=== PATIENT | female | born 2000 | race Caucasian/White ===

== ENCOUNTER 2020-06-01 07:53 | Emergency (ER) | payer BC ==
--- NOTE | 2020-06-01 08:44 | RAD REPORT ---
EXAM DESCRIPTION: RAD - Chest Single View - 06/01/2020 8:24 am CLINICAL HISTORY: COUGH Chest pain. COMPARISON: No comparisons FINDINGS: Portable technique limits examination quality. The lungs are grossly clear. The heart is normal in size. No displaced fractures. IMPRESSION: No acute intrathoracic process suspected.
--- NOTE | 2020-06-01 08:57 | ER ---
Nurse's Notes [facility] Name: Carolyn Snyder Age: 19 yrs Sex: Female : 2000 Arrival Date: 06/01/2020 Time: 07:57 Bed 8 Private MD: Diagnosis: Acute upper respiratory infection, [id number] (confirmed per pt) Presentation: 06/01 08:03 Chief complaint: Patient states: tested positive for COVID on 05-29, has had a cough iw since then, had fever one day but has now resolved, pt noticed some bright red blood in her sputum this morning. Coronavirus screen: Patient reports a cough. Patient reports shortness of breath or difficulty breathing. Patient reports a measured and/or subjective temperature greater than 100.4F. Patient denies travel on a cruise ship or to a country the [facility] currently lists as an affected area. Patient reports contact with known and/or suspected case of COVID-19. Coronavirus screen: Prior COVID test collected on: 05/29/20. Ebola Screen: Patient negative for fever greater than or equal to 101.5 degrees Fahrenheit, and additional compatible Ebola Virus Disease symptoms Patient denies exposure to infectious person. Patient denies travel to an Ebola-affected area in the 21 days before illness onset. No symptoms or risks identified at this time. Initial Sepsis Screen: Does the patient meet any 2 criteria? No. Patient's initial sepsis screen is negative. Does the patient have a suspected source of infection? No. Patient's initial sepsis screen is negative. Risk Assessment: Do you want to hurt yourself or someone else? Patient reports no desire to harm self or others. Onset of symptoms was May 29, 2020. 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 - Social history:: Smoking status: Patient denies any tobacco usage or history of. Screenin:58 Abuse screen: Denies threats or abuse. Denies injuries from another. Nutritional iw screening: No deficits noted. Tuberculosis screening: No symptoms or risk factors identified. Fall Risk None identified. Assessment: 08:58 General: Appears in no apparent distress. Behavior is calm, cooperative. Pain: Denies iw pain. Neuro: Level of Consciousness is awake, alert, obeys commands, Oriented to person, place, time, situation, Moves all extremities. Full function. Cardiovascular: Patient's skin is warm and dry. Respiratory: Reports cough that is. GI: No signs and/or symptoms were reported involving the gastrointestinal system. Derm: Skin is intact, is healthy with good turgor. 08:59 Reassessment: pt O2 sat remains 99% while ambulating. iw Vital Signs: 08:03 BP 124 / 84; Pulse 86; Resp 16; Temp 98.2; Pulse Ox 99% on R/A; iw 08:58 BP 104 / 61; Pulse 65; Resp 16 S; Temp 97.8(TE); Pulse Ox 100% on R/A; iw ED Course: 07:57 Patient arrived in ED. iw 08:03 Bhavik Puente MD is Attending Physician. kdr 08:05 Triage completed. iw 08:24 CXR XRAY In Process Unspecified. EDMS 08:58 Gladys De Los Santos, RN is Primary Nurse. iw 08:58 Patient has correct armband on for positive identification. iw 08:59 No provider procedures requiring assistance completed. Patient did not have IV access iw during this emergency room visit. 09:00 Arm band placed on. iw Administered Medications: No medications were administered Outcome: 08:57 Discharge ordered by . kdr 09:15 Discharged to home ambulatory. iw 09:15 Condition: good 09:15 Discharge instructions given to patient, Instructed on discharge instructions, follow up and referral plans. Demonstrated understanding of instructions, follow-up care, medications, Prescriptions given X 1. 09:16 Patient left the ED. iw Signatures: Dispatcher [employer] EDMS Bhavik Puente MD MD kdr Gladys De Los Santos, RN RN iw
--- NOTE | 2020-06-01 08:58 | EDPHYS ---
Physician Documentation [facility] Name: Carolyn Snyder Age: 19 yrs Sex: Female : 2000 Arrival Date: 06/01/2020 Time: 07:57 Bed 8 Private MD: ED Physician Bhavik Puente HPI: 06/01 08:05 This 19 yrs old Female presents to ER via Ambulatory with complaints of Cough kdr with blood. 08:05 The patient or guardian reports cough, that is intermittent, described as mild, with kdr productive sputum, that is bloody, difficulty breathing. Onset: The symptoms/episode began/occurred suddenly, just prior to arrival. Severity of symptoms: At their worst the symptoms were very mild, in the emergency department the symptoms have resolved. Modifying factors: The symptoms are alleviated by nothing, the symptoms are aggravated by nothing. Associated signs and symptoms: Pertinent positives: Low back pain, ear aches and occipital RINCON, this patient has no pertinent positive symptoms. The patient has not experienced similar symptoms in the past. The patient has been recently seen by a physician: the patient's primary care provider. The patient was tested positive on the . 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 - Social history:: Smoking status: Patient denies any tobacco usage or history of. ROS: 08:05 Constitutional: Negative for fever, chills, and weight loss, Eyes: Negative for injury, kdr pain, redness, and discharge, Neck: Negative for injury, pain, and swelling, Cardiovascular: Negative for chest pain, palpitations, and edema, Abdomen/GI: Negative for abdominal pain, nausea, vomiting, diarrhea, and constipation, : Negative for injury, bleeding, discharge, and swelling, MS/Extremity: Negative for injury and deformity, Skin: Negative for injury, rash, and discoloration, Psych: Negative for depression, anxiety, suicide ideation, homicidal ideation, and hallucinations, Allergy/Immunology: Negative for hives, rash, and allergies, Endocrine: Negative for neck swelling, polydipsia, polyuria, polyphagia, and marked weight changes, Hematologic/Lymphatic: Negative for swollen nodes, abnormal bleeding, and unusual bruising. 08:05 ENT: Positive for ear pain, Improving sore throat, Negative for foreign body sensation, hearing loss, pulling at ears, Teeth pain tinnitus, nasal discharge, rhinorrhea, sinus congestion, sinus pain, dental pain, difficulty swallowing, difficulty handling secretions, hoarseness. 08:05 Respiratory: Positive for cough, with rust-colored sputum, Negative for dyspnea on exertion, hemoptysis, orthopnea, pleurisy, shortness of breath, sputum production. 08:05 Back: Positive for of the low back area. 08:05 Neuro: Positive for headache, Negative for altered mental status, dizziness, hearing loss, syncope, near syncope, weakness. Exam: 08:05 Constitutional: This is a well developed, well nourished patient who is awake, alert, kdr and in no acute distress. Head/Face: Normocephalic, atraumatic. Eyes: Pupils equal round and reactive to light, extra-ocular motions intact. Lids and lashes normal. Conjunctiva and sclera are non-icteric and not injected. Cornea within normal limits. Periorbital areas with no swelling, redness, or edema. ENT: Nares patent. No nasal discharge, no septal abnormalities noted. Tympanic membranes are normal and external auditory canals are clear. Oropharynx with no redness, swelling, or masses, exudates, or evidence of obstruction, uvula midline. Mucous membranes moist. Neck: Trachea midline, no thyromegaly or masses palpated, and no cervical lymphadenopathy. Supple, full range of motion without nuchal rigidity, or vertebral point tenderness. No Meningismus. Chest/axilla: Normal chest wall appearance and motion. Nontender with no deformity. No lesions are appreciated. Cardiovascular: Regular rate and rhythm with a normal S1 and S2. No gallops, murmurs, or rubs. Normal PMI, no JVD. No pulse deficits. Respiratory: Lungs have equal breath sounds bilaterally, clear to auscultation and percussion. No rales, rhonchi or wheezes noted. No increased work of breathing, no retractions or nasal flaring. Abdomen/GI: Soft, non-tender, with normal bowel sounds. No distension or tympany. No guarding or rebound. No evidence of tenderness throughout. Back: No spinal tenderness. No costovertebral tenderness. Full range of motion. Skin: Warm, dry with normal turgor. Normal color with no rashes, no lesions, and no evidence of cellulitis. MS/ Extremity: Pulses equal, no cyanosis. Neurovascular intact. Full, normal range of motion. Neuro: Awake and alert, GCS 15, oriented to person, place, time, and situation. Cranial nerves II-XII grossly intact. Motor strength 5/5 in all extremities. Sensory grossly intact. Cerebellar exam normal. Normal gait. Psych: Awake, alert, with orientation to person, place and time. Behavior, mood, and affect are within normal limits. Vital Signs: 08:03 BP 124 / 84; Pulse 86; Resp 16; Temp 98.2; Pulse Ox 99% on R/A; iw 08:58 BP 104 / 61; Pulse 65; Resp 16 S; Temp 97.8(TE); Pulse Ox 100% on R/A; iw MDM: 08:05 Data reviewed: vital signs, nurses notes, lab test result(s), radiologic studies. kdr Counseling: I had a detailed discussion with the patient and/or guardian regarding: the historical points, exam findings, and any diagnostic results supporting the discharge/admit diagnosis, lab results, radiology results, the need for outpatient follow up. 08:57 Patient medically screened. kdr 06/01 08:03 Order name: CXR XRAY; Complete Time: 08:55 kdr Administered Medications: No medications were administered Disposition: 06/01/20 08:57 Discharged to Home. Impression: Acute upper respiratory infection, unspecified - COVID-19 (confirmed per pt). - Condition is Stable. - Discharge Instructions: Upper Respiratory Infection, Adult, COVID-19. - Prescriptions for Tessalon Perles 100 mg Oral Capsule - take 1 capsule by ORAL route every 8 hours As needed; 15 capsule. - Medication Reconciliation Form, Thank You Letter form. - Follow up: Private Physician; When: 2 - 3 days; Reason: If symptoms return, Further diagnostic work-up, Recheck today's complaints, Continuance of care, Re-evaluation by your physician. - Problem is an ongoing problem. - Symptoms have improved. Signatures: Dispatcher [employer] EDMS Bhavik Puente MD MD kdr Gladys De Los Santos RN RN iw Corrections: (The following items were deleted from the chart) 09:16 08:57 06/01/2020 08:57 Discharged to Home. Impression: Acute upper respiratory iw infection, unspecified - COVID-19 (confirmed per pt). Condition is Stable. Forms are Medication Reconciliation Form, Thank You Letter, Antibiotic Education, Prescription Opioid Use. Follow up: Private Physician; When: 2 - 3 days; Reason: If symptoms return, Further diagnostic work-up, Recheck today's complaints, Continuance of care, Re-evaluation by your physician. Problem is an ongoing problem. Symptoms have improved. kdr
[2020-06-01 09:23] VITALS: BP 104/61; TEMP 97.8; O2SAT 100
== END 2020-06-01 09:16 | disposition home or self-care (01) ==
LOC: ER 07:53
DX: U07.1 COVID-19 (principal); J06.9 Acute upper respiratory infection, unspecified
CPT/HCPCS: 71045; 99283